=== PATIENT | female | born 1950 ===

== ENCOUNTER 2018-08-18 15:00 | Outpatient (RCR) | payer MEDICARE, BC | END 2018-08-21 | LOC: PT 15:00 | PROVIDERS: ATTEND Specialist | DX: M17.0 Bilateral primary osteoarthritis of knee (principal); M25.562 Pain in left knee; M25.561 Pain in right knee; M62.81 Muscle weakness (generalized) | CPT/HCPCS: 97110 ×8; 97161; G8981; G8982 ==

== ENCOUNTER 2018-09-01 15:00 | Outpatient (RCR) | payer MEDICARE, BC | END 2018-09-21 | LOC: PT 15:00 | PROVIDERS: ATTEND Specialist | DX: M17.0 Bilateral primary osteoarthritis of knee (principal); M25.562 Pain in left knee; M25.561 Pain in right knee; M62.81 Muscle weakness (generalized) | CPT/HCPCS: 97110 ×3; 97530; G8981; G8982 ==